=== PATIENT | male | born 1945 ===

== ENCOUNTER 2017-01-09 15:48 | Inpatient (IN) | payer OTHER ==
[~2017-01-09] VITALS: Ht 170.2 cm; Wt 85.3 kg
[2017-01-09 16:36] LABS: HEMATOCRIT 42.7 % (42-52); MEAN CELL VOLUME 84.6 fL (80-100); MEAN CORPUSCULAR HEMOGLOBIN 27.5 pg (25-34); MEAN CORPUSCULAR HGB CONC 32.6 g/dl (32-36); MEAN PLATELET VOLUME 10.6 fL (7.4-10.4); PLATELET COUNT 173 K/uL (130-400); RED BLOOD COUNT 5.05 M/uL (4.7-6.1); WHITE BLOOD COUNT 9.73 K/uL (4.8-10.8)
[2017-01-09 16:45] LABS: PARTIAL THROMBOPLASTIN RATIO 1.1; PROTHROMBIN TIME (PATIENT) 10.5 SECONDS (9.0-12.0)
--- NOTE | 2017-01-09 16:47 | DIAGNOSTIC IMAGING REPORT ---
SINGLE VIEW CHEST CLINICAL HISTORY: Syncope. FINDINGS: An AP, portable, upright chest radiograph is obtained. No prior studies are available for comparison at the time of dictation. The examination is degraded by portable technique, apical lordotic positioning, and patient rotation. The heart is mildly enlarged and there is atherosclerotic calcification of the thoracic aorta. The pulmonary vasculature is noncongested. The lungs and pleural spaces are clear. No pneumothorax is seen. The skeletal structures are osteopenic. The bony thorax is grossly intact. IMPRESSION: Mild cardiac enlargement with no acute cardiopulmonary abnormality. Electronically signed by: Paul Faust M.D. 01/09/2017 4:46 PM Dictated Date/Time: 01/09/2017 4:45 PM
[2017-01-09 16:55] LABS: BUN/CREATININE RATIO 10.9 (10-20); CALCIUM 9.1 mg/dl (8.5-10.1); CREATININE 2.3 mg/dl (0.60-1.40); POTASSIUM 4.5 mmol/L (3.5-5.1)
[2017-01-09] MEDS ORDERED: SODIUM CHLORIDE 0.9% 500ML 500 ML IV STA (16:59)
[2017-01-09 17:00] LABS: ALB/GLOB RATIO 0.9 (0.9-2); CKMB/CK RATIO 1.7 (0-3.0)
[2017-01-09] MEDS ORDERED: DIPHTHERIA/TETANUS/PERTUSSIS 0.5 ML SYR/VIAL IM. ONE (17:00)
--- NOTE | 2017-01-09 17:42 | DIAGNOSTIC IMAGING REPORT ---
CT OF THE HEAD WITHOUT CONTRAST CLINICAL HISTORY: Syncopal episode with fall. Head injury. Evaluate for bleed. COMPARISON STUDY: No previous studies for comparison. CT DOSE: 537.48 mGy.cm TECHNIQUE: Helical axial images of the head were obtained without IV contrast. Automated exposure control was utilized for the study. FINDINGS: No acute intracranial hemorrhage, midline shift or mass effect is present. Ventricular system is normal. Basilar cisterns are patent. There are no extra-axial collections. You-white differentiation is maintained. There are no findings to suggest acute dural sinus thrombosis or acute territorial infarct. There is mild bilateral basal ganglia calcification. Minimal right frontal scalp gas represents a laceration. There is no calvarial fracture. IMPRESSION: 1. No acute intracranial findings. 2. Right frontal scalp laceration. No calvarial fracture. Electronically signed by: Aristeo Barnard M.D. 01/09/2017 5:41 PM Dictated Date/Time: 01/09/2017 5:39 PM
[2017-01-09] MEDS ORDERED: [UNRECOGNIZED DRUG - OTHER] PO (18:17)
[2017-01-09] MEDS ORDERED: [UNRECOGNIZED DRUG - MIXTURE] PO (18:17)
[2017-01-09] MEDS ORDERED: [UNRECOGNIZED DRUG - OTHER] PO (18:17)
[2017-01-09] MEDS ORDERED: [UNRECOGNIZED DRUG - CODE] PO (18:17)
[2017-01-09] MEDS ORDERED: [UNRECOGNIZED DRUG - OTHER] PO (18:17)
[2017-01-09] MEDS ORDERED: LORA-741 PO (18:17)
[2017-01-09] MEDS ORDERED: [UNRECOGNIZED DRUG - OTHER] PO (18:17)
--- NOTE | 2017-01-09 18:35 | DIAGNOSTIC IMAGING REPORT ---
RIGHT LOWER EXTREMITY VENOUS DOPPLER CLINICAL HISTORY: Evaluate for deep venous thrombus. Syncopal episode. COMPARISON STUDY: No previous studies for comparison. TECHNIQUE: Sonography of the deep venous system of the right lower extremity was performed. Compression and augmentation were evaluated. FINDINGS: The right common femoral, superficial femoral and popliteal veins were compressible. Augmentation was normal. Flow was shown within the deep calf vessels. IMPRESSION: No evidence of deep venous thrombus within the right lower extremity. Electronically signed by: Aristeo Barnard M.D. 01/09/2017 6:33 PM Dictated Date/Time: 01/09/2017 6:32 PM
--- NOTE | 2017-01-09 18:43 | DIAGNOSTIC IMAGING REPORT ---
PELVIS 1 OR 2 VIEW ROUTINE CLINICAL HISTORY: Syncope. Fall. COMPARISON STUDY: No previous studies for comparison. FINDINGS: The sacroiliac joints and symphysis pubis are intact. No acute fracture is identified. Ossific/calcific density adjacent to the greater trochanter of the left femur is chronic. IMPRESSION: No acute fracture within the pelvis or hips. Electronically signed by: Aristeo Barnard M.D. 01/09/2017 6:42 PM Dictated Date/Time: 01/09/2017 6:41 PM
--- NOTE | 2017-01-09 20:37 | EMERGENCY ROOM VISIT NOTE ---
History Report prepared by Dang: Dany Chavis Under the Supervision of: Dr. Brayan Varela M.D. First contact with patient: 16:43 Chief Complaint: SYNCOPE Stated Complaint: SYNCOPE / [facility] Nursing Triage Summary: pt arrives via EMS with family from [employer] ([place] pt there for hx of syncopal episode , pt then had syncopal episode in parking lot , lac to right side of head from fall , denie sLOC pt denies cp or sob , denies TODD or NV denies vision changes BSG from [employer] ([place] History of Present Illness The patient is a 71 year old male with a history diabetes and hypertension who presents to the Emergency Room with complaints of a syncopal episode that occurred earlier today. The patient says that he has been having some dizziness over the past few days, and his pressure came down to 85/50 this morning. He states that he has not had blood pressure issues in a long time, and has been taking a blood pressure medication (Olmetec) for 20 years. The patient notes that every time he got up from sitting down over the past 2 days, he would get lightheaded and his vision would darken. He would wait a few seconds to make his first step, and he would feel better. However, on his way to [employer] earlier today, the patient says that he stepped out of the car in the [employer] parking lot, and did not wait a few moments this time before making his first step. He states that when he made his first step, and got dizzy, blacked out and fell. Per the patient's family, the patient stumbled backward, hitting the right side of his head on another car, and was out for around 10 seconds. The patient did not have any seizure-like activity. The patient says that he was feeling fine before 2 days ago, and his blood pressure had been fine. He does note that he ate something that gave him indigestion 2 days ago before the symptoms came on, and he has been having episodes of heaviness in his abdomen and lower chest ever since then. The patient additionally says that he had a headache and was shivering 2 nights ago. He did not take his temperature, but he thinks he had a fever. He took Tylenol that night. The patient says that he has been having some right calf pain for the past month. He denies any shortness of breath, palpitations, current headaches, melena, hematochezia, or diarrhea. He came from [place] 2 months ago, and has not had any major traveling since then. He does not think that he has had a recent tetanus shot. Source of History: patient, family Onset: Earlier today Position: other (global - syncope) Timing: other (episode) Associated Symptoms: No headache (currently), No SOB, No melena, No hematochezia, No diarrhea Note: Associated symptoms: Dizziness, lightheadedness. Notes indigestion for past 2 days (heaviness in abdomen and lower chest). Notes that 2 nights ago had a headache and was shivering. [place] feverish. Denies palpitations. Review of Systems See HPI for pertinent positives & negatives. A total of 10 systems reviewed and were otherwise negative. Past Medical & Surgical Medical Problems: (1) Diabetes (2) HTN (hypertension) Family History No pertinent family history Social History Smoking Status: Never Smoker Alcohol Use: none Marital Status: Housing Status: lives with family Current/Historical Medications Scheduled Lorazepam (Ativan), 0.5 MG PO QPM [Ecosprin], 1 TAB PO DAILY [Gp1], 1 TAB PO DAILY [Madl Forte], 1 TAB PO DAILY [[place]], 1 GM PO QAM [Sompraz], 20 MG PO DAILY [Ziten-M], 1 TAB PO QPM Allergies Coded Allergies: No Known Allergies (Unverified , 01/09/17) Physical Exam Vital Signs Date Time Temp Pulse Resp B/P (MAP) Pulse Ox O2 Delivery O2 Flow Rate FiO2 01/09/17 18:45 75 18 128/70 97 Room Air 01/09/17 17:22 82 18 100/62 99 Room Air 01/09/17 17:17 76 124/73 108 109/67 82 100/62 01/09/17 16:51 85 01/09/17 15:53 36.6 84 20 109/67 95 Room Air Physical Exam Constitutional: Vital signs reviewed. Eyes: Pupils are equal round reactive to light. Conjunctiva are noninjected. ENT: Pharynx is clear without erythema or exudate. Mucous membranes are moist. Neck supple without meningeal signs. Respiratory: Clear to auscultation bilaterally. Breath sounds are equal bilaterally. Cardiovascular: Regular rate and rhythm. No rubs or gallops. GI: Soft, nondistended and nontender. Bowel sounds are present. Musculoskeletal: No peripheral edema. No lower extremity tenderness. No hip tenderness. Integumentary: Skin avulsion to right scalp, no active bleeding, no bony depression. Neurological: The patient is awake and alert. Cranial nerves II-XII are intact. Motor is 5 out of 5 all extremities. Sensation is intact to light touch all extremities. Normal speech. No pronator drift. No limb ataxia. Psychiatric: Normal affect. Medical Decision & Procedures ER Provider Diagnostic Interpretation: Radiology results as stated below per my review and the radiologist's interpretation: SINGLE VIEW CHEST CLINICAL HISTORY: Syncope. FINDINGS: An AP, portable, upright chest radiograph is obtained. No prior studies are available for comparison at the time of dictation. The examination is degraded by portable technique, apical lordotic positioning, and patient rotation. The heart is mildly enlarged and there is atherosclerotic calcification of the thoracic aorta. The pulmonary vasculature is noncongested. The lungs and pleural spaces are clear. No pneumothorax is seen. The skeletal structures are osteopenic. The bony thorax is grossly intact. IMPRESSION: Mild cardiac enlargement with no acute cardiopulmonary abnormality. Electronically signed by: Paul Faust M.D. 01/09/2017 4:46 PM Dictated Date/Time: 01/09/2017 4:45 PM RIGHT LOWER EXTREMITY VENOUS DOPPLER CLINICAL HISTORY: Evaluate for deep venous thrombus. Syncopal episode. COMPARISON STUDY: No previous studies for comparison. TECHNIQUE: Sonography of the deep venous system of the right lower extremity was performed. Compression and augmentation were evaluated. FINDINGS: The right common femoral, superficial femoral and popliteal veins were compressible. Augmentation was normal. Flow was shown within the deep calf vessels. IMPRESSION: No evidence of deep venous thrombus within the right lower extremity. Electronically signed by: Aristeo Barnard M.D. 01/09/2017 6:33 PM Dictated Date/Time: 01/09/2017 6:[address] OF THE HEAD WITHOUT CONTRAST CLINICAL HISTORY: Syncopal episode with fall. Head injury. Evaluate for bleed. COMPARISON STUDY: No previous studies for comparison. CT DOSE: 537.48 mGy.cm TECHNIQUE: Helical axial images of the head were obtained without IV contrast. Automated exposure control was utilized for the study. FINDINGS: No acute intracranial hemorrhage, midline shift or mass effect is present. Ventricular system is normal. Basilar cisterns are patent. There are no extra-axial collections. You-white differentiation is maintained. There are no findings to suggest acute dural sinus thrombosis or acute territorial infarct. There is mild bilateral basal ganglia calcification. Minimal right frontal scalp gas represents a laceration. There is no calvarial fracture. IMPRESSION: 1. No acute intracranial findings. 2. Right frontal scalp laceration. No calvarial fracture. Electronically signed by: Aristeo Barnard M.D. 01/09/2017 5:41 PM Dictated Date/Time: 01/09/2017 5:39 PM PELVIS 1 OR 2 VIEW ROUTINE CLINICAL HISTORY: Syncope. Fall. COMPARISON STUDY: No previous studies for comparison. FINDINGS: The sacroiliac joints and symphysis pubis are intact. No acute fracture is identified. Ossific/calcific density adjacent to the greater trochanter of the left femur is chronic. IMPRESSION: No acute fracture within the pelvis or hips. Electronically signed by: Aristeo Barnard M.D. 01/09/2017 6:42 PM Dictated Date/Time: 01/09/2017 6:41 PM Laboratory Results 01/09/17 16:15 01/09/17 16:15 Test 01/09/17 16:15 01/09/17 16:19 Red Blood Count 5.05 M/uL (4.7-6.1) Mean Corpuscular Volume 84.6 fL (80-100) Mean Corpuscular Hemoglobin 27.5 pg (25-34) Mean Corpuscular Hemoglobin Concent 32.6 g/dl (32-36) RDW Standard Deviation 41.0 fL (36.4-46.3) RDW Coefficient of Variation 13.4 % (11.5-14.5) Mean Platelet Volume 10.6 fL (7.4-10.4) Prothrombin Time 10.5 SECONDS (9.0-12.0) Prothromb Time International Ratio 1.0 (0.9-1.1) Activated Partial Thromboplast Time 28.9 SECONDS (21.0-31.0) Partial Thromboplastin Ratio 1.1 Anion Gap 6.0 mmol/L (3-11) Est Creatinine Clear Calc Drug Dose 31.2 ml/min Estimated GFR () 31.7 Estimated GFR (Non- 27.3 BUN/Creatinine Ratio 10.9 (10-20) Calcium Level 9.1 mg/dl (8.5-10.1) Total Bilirubin 0.3 mg/dl (0.2-1) Aspartate Amino Transf (AST/SGOT) 10 U/L (15-37) Alanine Aminotransferase (ALT/SGPT) 20 U/L (12-78) Alkaline Phosphatase 82 U/L (45-117) Total Creatine Kinase 102 U/L (39-308) Creatine Kinase MB 1.7 ng/ml (0.5-3.6) Creatine Kinase MB Ratio 1.7 (0-3.0) Total Protein 7.6 gm/dl (6.4-8.2) Albumin 3.7 gm/dl (3.4-5.0) Globulin 3.9 gm/dl (2.5-4.0) Albumin/Globulin Ratio 0.9 (0.9-2) Bedside Troponin I < 0.030 ng/ml (0-0.045) Laboratory results as reviewed by me. Medications Administered Medications (Trade) Dose Ordered Sig/[place] Route Start Time Stop Time Status Last Admin Dose Admin Sodium Chloride 500 ml @ 999 mls/hr Q31M STAT IV 01/09/17 16:59 01/09/17 17:29 DC 01/09/17 16:59 999 MLS/HR Diphtheria/ Pertussis/Tetanus Vacc (Adacel Inj) 0.5 ml ONCE ONCE IM. 01/09/17 17:00 01/09/17 17:01 DC 01/09/17 18:44 0.5 ML ECG Indication: syncope Rate (beats per minute): 84 Findings: no acute ischemic change, other (left anterior fascicular block) ED Course 1641: The patient was evaluated in room C2A. A complete history and physical exam was performed. 1658: Ordered NSS 500 ml @ 999 mls/hr IV. 1699: Ordered Adacel Inj 0.5 ml IM. 1926: I spoke to the medical unit secretary, who said she already spoke with Dr. Rausch - [facility] gym attendant - about the patient and that Dr. Rausch is already working on getting the patient evaluated for further treatment. Medical Decision This is a 71-year-old male who presents with a syncopal episode and head injury and right leg pain. Differential diagnosis includes vasovagal syncope, orthostatic hypotension, dehydration, renal failure, metabolic derangement, anemia, cardiac, DVT. I did perform a limited focused review of portions of the patient's old chart on the electronic medical record. The patient has had no prior visits to this hospital. Blood Pressure Screening: Patient was found to have normal blood pressure on screening and does not require follow-up. Medication Reconciliation: I attest that I have personally reviewed the patient' s current medication list. I did evaluate the patient as noted above. IV access was established. The patient was placed on a continuous classroom monitor. I did order and personally review the patient's 12-lead EKG and chest/pelvic x-rays as described above. I did order and review the patient's blood work as noted in the electronic medical record. The patient has renal failure on blood work. He is also orthostatic. I did give him IV fluids. It seems likely that the patient developed renal failure which caused his antihypertensives to accumulate in his body causing him to be weak and lightheaded over the past 2 days and to pass out today. I did order a CT of the head. I did review the images myself as well as the radiology report as described above. I did order a Doppler of the right lower extremity which showed no evidence of DVT. I did discuss the test results with the patient and his son. I did discuss the case with the hospitalist and case reviewer for further evaluation in the hospital. He will require repeat cardiac enzymes as he was complaining of some chest pressure as well. Impression Primary Impression: Syncope Additional Impressions: Acute renal failure Left sided chest pain Right leg pain Scalp laceration Head injury Scribe Attestation The scribe's documentation has been prepared under my direct and personally reviewed by me in its entirety. I confirm that the note above accurately reflects all work, treatment, procedures, and medical decision making performed by me. Departure Information Dispostion Being Evaluated By Hospitalist Patient Instructions My [facility] Problem Qualifiers Primary Impression: Syncope Syncope type: unspecified Qualified Codes: R55 - Syncope and collapse Additional Impressions: Acute renal failure Acute renal failure type: unspecified Qualified Codes: N17.9 - Acute kidney failure, unspecified Scalp laceration Encounter type: initial encounter Qualified Codes: S01.01XA - Laceration without foreign body of scalp, initial encounter Head injury Encounter type: initial encounter Qualified Codes: S09.90XA - Unspecified injury of head, initial encounter
[2017-01-09] MEDS ORDERED: ONDANSETRON INJ 2 MG/ML 2 ML VIAL IV PRN (20:45)
[2017-01-09] MEDS ORDERED: POLYETHYLENE (MIRALAX) 17 GM PACK PO PRN (20:45)
[2017-01-09] MEDS ORDERED: ACETAMINOPHEN 325 MG TAB PO PRN (20:45)
--- NOTE | 2017-01-09 20:52 | History and Physical ---
History & Physical Date & Time of Service: Jan 09, 2017 at 20:52 Chief Complaint: Syncope / [facility] Primary Care Physician: No Doctor, Assigned History of Present Illness Source: patient 71-year-old male with past medical history of diabetes and hypertension presented to the ER after he had a syncopal episode earlier today. The patient stated that he has been feeling dizzy on and off and had noticed that he felt dizzy/lightheaded if he suddenly stood up. He would usually wait for a few moments before moving further. He noticed that his dizziness worsened in the last few days and his blood pressure this morning was 80/50. He was on his way to [employer] to be checked out. While in the parking lot, as he stood up from his car he felt lightheaded and had a syncopal episode. During his fall, he hit his head to an adjacent car and sustained a laceration on the scalp. No seizure-like activity was witnessed. He denies any chest pain, difficulty breathing, palpitations prior to the syncopal episode. Denies any motor weakness, numbness or tingling, nausea or vomiting. He had recently traveled from [facility] and was complaining of right calf pain. Denies any fevers or chills, cough, dysuria . He states that his appetite has been low but he has been forcing himself to eat. He also thinks he had decreased fluid intake in the last few days. Past Medical/Surgical History Hypertension, GERD, diabetes mellitus Family History No pertinent family history Social History Smoking Status: Never Smoker Marital Status: Allergies Coded Allergies: No Known Allergies (Unverified , 01/09/17) Home Medications Scheduled Lorazepam (Ativan), 0.5 MG PO QPM [Ecosprin], 1 TAB PO DAILY [Gp1], 1 TAB PO DAILY [Madl Forte], 1 TAB PO DAILY [Olmetrack], 1 GM PO QAM [Sompraz], 20 MG PO DAILY [Ziten-M], 1 TAB PO QPM Review of Systems Constitutional: No fever, No chills Eyes: No worsening of vision ENT: No hearing loss Respiratory: No cough, No sputum, No shortness of breath Cardiovascular: No chest pain, No palpitations Abdomen: No pain, No nausea, No vomiting Musculoskeletal: No joint pain Genitourinary - Male: No dysuria, No urinary frequency Neurologic: + problem reported (dizziness with syncopal episode), No memory loss Psychiatric: No depression symptoms Endocrine: No fatigue Hematologic / Lymphatic: No abnormal bleeding/bruising Physical Exam Vital Signs Date Time Temp Pulse Resp B/P (MAP) Pulse Ox O2 Delivery O2 Flow Rate FiO2 01/09/17 18:45 75 18 128/70 97 Room Air 01/09/17 17:22 82 18 100/62 99 Room Air 01/09/17 17:17 76 124/73 108 109/67 82 100/62 01/09/17 16:51 85 01/09/17 15:53 36.6 84 20 109/67 95 Room Air General Appearance: WD/WN, no apparent distress Head: normocephalic, + pertinent finding (laceration on right forehead) Eyes: normal inspection ENT: hearing grossly normal Neck: supple Respiratory/Chest: lungs clear, normal breath sounds, no respiratory distress, no accessory muscle use Cardiovascular: regular rate, rhythm Abdomen/GI: normal bowel sounds, non tender, soft Back: normal inspection, no CVA tenderness Neurologic/Psych: alert, normal mood/affect, oriented x 3 Diagnostics Laboratory Results Results Past 24 Hours Test 01/09/17 16:15 01/09/17 16:19 Range/Units White Blood Count 9.73 4.8-10.8 K/uL Red Blood Count 5.05 4.7-6.1 M/uL Hemoglobin 13.9 14.0-18.0 g/dL Hematocrit 42.7 42-52 % Mean Corpuscular Volume 84.6 80-100 fL Mean Corpuscular Hemoglobin 27.5 25-34 pg Mean Corpuscular Hemoglobin Concent 32.6 32-36 g/dl RDW Standard Deviation 41.0 36.4-46.3 fL RDW Coefficient of Variation 13.4 11.5-14.5 % Platelet Count 173 130-400 K/uL Mean Platelet Volume 10.6 7.4-10.4 fL Prothrombin Time 10.5 9.0-12.0 SECONDS Prothromb Time International Ratio 1.0 0.9-1.1 Activated Partial Thromboplast Time 28.9 21.0-31.0 SECONDS Partial Thromboplastin Ratio 1.1 Sodium Level 140 136-145 mmol/L Potassium Level 4.5 3.5-5.1 mmol/L Chloride Level 108 98-107 mmol/L Carbon Dioxide Level 26 21-32 mmol/L Anion Gap 6.0 3-11 mmol/L Blood Urea Nitrogen 25 7-18 mg/dl Creatinine 2.30 0.60-1.40 mg/dl Est Creatinine Clear Calc Drug Dose 31.2 ml/min Estimated GFR () 31.7 Estimated GFR (Non- 27.3 BUN/Creatinine Ratio 10.9 10-20 Random Glucose 119 70-99 mg/dl Calcium Level 9.1 8.5-10.1 mg/dl Total Bilirubin 0.3 0.2-1 mg/dl Aspartate Amino Transf (AST/SGOT) 10 15-37 U/L Alanine Aminotransferase (ALT/SGPT) 20 12-78 U/L Alkaline Phosphatase 82 45-117 U/L Total Creatine Kinase 102 39-308 U/L Creatine Kinase MB 1.7 0.5-3.6 ng/ml Creatine Kinase MB Ratio 1.7 0-3.0 Total Protein 7.6 6.4-8.2 gm/dl Albumin 3.7 3.4-5.0 gm/dl Globulin 3.9 2.5-4.0 gm/dl Albumin/Globulin Ratio 0.9 0.9-2 Bedside Troponin I < 0.030 0-0.045 ng/ml Diagnostic Radiology [~ rep ct add3]] SINGLE VIEW CHEST CLINICAL HISTORY: Syncope. FINDINGS: An AP, portable, upright chest radiograph is obtained. No prior studies are available for comparison at the time of dictation. The examination is degraded by portable technique, apical lordotic positioning, and patient rotation. The heart is mildly enlarged and there is atherosclerotic calcification of the thoracic aorta. The pulmonary vasculature is noncongested. The lungs and pleural spaces are clear. No pneumothorax is seen. The skeletal structures are osteopenic. The bony thorax is grossly intact. IMPRESSION: Mild cardiac enlargement with no acute cardiopulmonary abnormality. Electronically signed by: Paul Faust M.D. 01/09/2017 4:46 PM Dictated Date/Time: 01/09/2017 4:45 PM RIGHT LOWER EXTREMITY VENOUS DOPPLER CLINICAL HISTORY: Evaluate for deep venous thrombus. Syncopal episode. COMPARISON STUDY: No previous studies for comparison. TECHNIQUE: Sonography of the deep venous system of the right lower extremity was performed. Compression and augmentation were evaluated. FINDINGS: The right common femoral, superficial femoral and popliteal veins were compressible. Augmentation was normal. Flow was shown within the deep calf vessels. IMPRESSION: No evidence of deep venous thrombus within the right lower extremity. Electronically signed by: Aristeo Barnard M.D. 01/09/2017 6:33 PM Dictated Date/Time: 01/09/2017 6:[address] OF THE HEAD WITHOUT CONTRAST CLINICAL HISTORY: Syncopal episode with fall. Head injury. Evaluate for bleed. COMPARISON STUDY: No previous studies for comparison. CT DOSE: 537.48 mGy.cm TECHNIQUE: Helical axial images of the head were obtained without IV contrast. Automated exposure control was utilized for the study. FINDINGS: No acute intracranial hemorrhage, midline shift or mass effect is present. Ventricular system is normal. Basilar cisterns are patent. There are no extra-axial collections. You-white differentiation is maintained. There are no findings to suggest acute dural sinus thrombosis or acute territorial infarct. There is mild bilateral basal ganglia calcification. Minimal right frontal scalp gas represents a laceration. There is no calvarial fracture. IMPRESSION: 1. No acute intracranial findings. 2. Right frontal scalp laceration. No calvarial fracture. Electronically signed by: Aristeo Barnard M.D. PELVIS 1 OR 2 VIEW ROUTINE CLINICAL HISTORY: Syncope. Fall. COMPARISON STUDY: No previous studies for comparison. FINDINGS: The sacroiliac joints and symphysis pubis are intact. No acute fracture is identified. Ossific/calcific density adjacent to the greater trochanter of the left femur is chronic. IMPRESSION: No acute fracture within the pelvis or hips. Electronically signed by: Aristeo Barnard M.D. 01/09/2017 6:42 PM EKG Normal sinus rhythm Left anterior fascicular block Abnormal ECG No previous ECGs available Confirmed by GUSTAVO VELÁZQUEZ ([id number]) on 01/09/2017 6:34:54 PM Impression Assessment and Plan 71-year-old male with past medical history of diabetes and hypertension presented to the ER after he had a syncopal episode earlier today. He has been experiencing dizziness/lightheadedness especially on getting up which had worsened last few days. While in the parking lot today he had S syncopal episode after he stood up from the car and fell hitting the right side of his head and sustained scalp laceration. Fall/ syncopal episode secondary to dizziness: It is likely the dizziness/lightheadedness is secondary to orthostatic hypotension - Head CT negative, pelvic x-ray negative for fractures - EKG: Normal sinus rhythm, Left anterior fascicular block - Initial trop negative, troponin trended every 8 hours - Orthostatic vitals Qshift - Hold current blood pressure medication - Continue IV fluids - Fall precautions PRINCESS Cr on admission at 2.3, unknown baseline - Continue IVF - Monitor Cr Right calf pain: - Doppler ultrasound negative for DVT DMT2 - Home oral meds currently held - ISS HTN: - held home meds - Monitor orthostatic vitals every shift DVT prophylaxis: SCDs GERD: - continue protonix Full code Disposition: admitted to tele Resident Physician Supervision Note: I was present with Dr. Avery during the history and exam. I discussed the case with the resident and agree with the findings and plan as documented in the note. Any exceptions or clarifications are listed here: Documented By: Maxwell Rausch 71 y/o M HTN, DM - visiting from [place] - suffered a syncopal episode in a parking lot - describes orthostasis symptoms prior. Pt is not aware of histroy of CKD - Creat is elevated which may be acute or chronic. He was concerned that he had not been drinking enough water since arrival although this too is unclear. OE Well appearing elderly male AAO x 2 S1,2 R CTAB NT, ND, BS+ No CCE P: IVF orthostatics with vitals Trend renal function We may have to source his baseline if there is no improvement to guide in setting a target value Level of Care Telemetry Resuscitation Status FULL RESUSCITATION VTE Prophylaxis VTE Risk Assessment Done? Y/N: Yes Risk Level: Moderate Given or contraindicated: SCD's Resident Tracking Resident Involvement: Resident Care Provided Care Provided: Adult Hospital Medicine
[2017-01-09] MEDS ORDERED: DEXTROSE 50% 50 ML SYR IV PRN (21:30)
[2017-01-09] MEDS ORDERED: GLUCAGON FOR INJ 1 MG VIAL SQ PRN (21:30)
[2017-01-09] MEDS ORDERED: GLUCOSE 40% GEL 15 GM TUBE PO PRN (21:30)
[2017-01-09] MEDS ORDERED: GLUCOSE 10 TABS/TUBE PO PRN (21:30)
[2017-01-09 21:45] VITALS: BP 118/70; PULSE 78; TEMP 36.4; O2SAT 96; Ht 170.2 cm; Wt 85.3 kg
[2017-01-09] MEDS: SODIUM CHLORIDE 0.9% 1000ML 1,000 ML IV SCH (22:59)
[2017-01-09 23:04] VITALS: BP 95/53
[2017-01-10] VITALS (8 sets, daily range): BP systolic 92–112; BP diastolic 52–68; PULSE 64–82; TEMP 36.5–36.8; O2SAT 96–99
[2017-01-10] MEDS: INSULIN ASPART 100 UNITS/ML 3 ML PEN SC SCH ×2 (07:35→11:41)
[2017-01-10 08:14] LABS: HEMATOCRIT 42.1 % (42-52); MEAN CELL VOLUME 85.2 fL (80-100); MEAN CORPUSCULAR HEMOGLOBIN 27.5 pg (25-34); MEAN CORPUSCULAR HGB CONC 32.3 g/dl (32-36); MEAN PLATELET VOLUME 10.8 fL (7.4-10.4); PLATELET COUNT 164 K/uL (130-400); RED BLOOD COUNT 4.94 M/uL (4.7-6.1); WHITE BLOOD COUNT 8.02 K/uL (4.8-10.8)
[2017-01-10] MEDS: SODIUM CHLORIDE 0.9% 1000ML 1,000 ML IV SCH (08:41)
[2017-01-10 08:44] LABS: ALB/GLOB RATIO 0.9 (0.9-2); BUN/CREATININE RATIO 13.5 (10-20); CREATININE 1.3 mg/dl (0.60-1.40); POTASSIUM 4.7 mmol/L (3.5-5.1)
[2017-01-10] MEDS ORDERED: PANTOprazole SOD 40 MG TAB PO SCH (09:00)
[2017-01-10] MEDS ORDERED: ASPIRIN 81 MG ECTAB PO SCH (09:00)
--- NOTE | 2017-01-10 14:18 | Discharge Instructions ---
Discharge Instructions Date of Service Jan 10, 2017. Admission Reason for Admission: Acute Renal Failure Syncopal Episodes Syncope Discharge Discharge Diagnosis / Problem: Orthostatic hypotension. Dehydration. Discharge Goals Goal(s): Improve disease control Activity Recommendations Activity Limitations: per Instructions/Follow-up section Exercise/Sports Limitations: gradually increase as tolerated Shower/Bathe: no limitations Driving or Machine Use: resume 1 day after discharge . Instructions / Follow-Up Instructions / Follow-Up Follow up with your Family doctor within one week. You will need a blood test ensuring your kidney function has improved. Drink lots of water and stay hydrated. Do not keep taking your blood pressure medication from [facility]. You can make an appt with Dr El or Dr Avery by calling [phone], [facility] [address] [address] ([facility] [employer] building in front of the hospital). Current Hospital Diet Patient's current hospital diet: Diabetes Type 2 Diet Discharge Diet Recommended Diet: Diabetes Type 2 Diet Pending Studies Studies pending at discharge: no Medical Emergencies . Who to Call and When: Medical Emergencies: If at any time you feel your situation is an emergency, please call 911 immediately. . Non-Emergent Contact Non-Emergency issues call your: Primary Care Provider . . "Provider Documentation" section prepared by Lolis El. . VTE Core Measure Inpt VTE Proph given/why not?: SCD's
--- NOTE | 2017-01-10 14:25 | Discharge Summary ---
Discharge Summary Date of Service Jan 10, 2017. (Lolis El MD) Discharge Summary Admission Date: Jan 09, 2017 at 20:46 Discharge Date: Jan 10, 2017 Discharge Disposition: Home Principal Diagnosis: Orthostatic hypotension, Dehydration Procedures: SINGLE VIEW CHEST IMPRESSION: Mild cardiac enlargement with no acute cardiopulmonary abnormality. RIGHT LOWER EXTREMITY VENOUS DOPPLER IMPRESSION: No evidence of deep venous thrombus within the right lower extremity. CT OF THE HEAD WITHOUT CONTRAST IMPRESSION: 1. No acute intracranial findings. 2. Right frontal scalp laceration. No calvarial fracture. PELVIS 1 OR 2 VIEW ROUTINE CLINICAL HISTORY: Syncope. Fall. IMPRESSION: No acute fracture within the pelvis or hips. (Lolis El MD) Problems/Secondary Diagnoses: acute kidney injury - resolved GERD T2DM HTN (Kevin Solorzano MD) Medication Reconciliation Continued Medications: Lorazepam (Ativan) 0.5 Mg Tab 0.5 MG PO QPM [Ecosprin] () 1 TAB PO DAILY ASPIRIN FROM [facility] [Sompraz] () 20 MG PO DAILY SUPPLEMENT FROM [facility] Discontinued Medications: [Gp1] () 1 TAB PO DAILY SUGAR PILL FROM [facility]. [Madl Forte] () 1 TAB PO DAILY SUPPLEMENT FROM [facility] [Olmetrack] () 1 GM PO QAM BLOOD PRESSURE MED FROM [facility] [Ziten-M] () 1 TAB PO QPM SUGAR PILL FROM [facility]. Discharge Exam Review of Systems: Constitutional: No fever, No chills, No sweats, No weight loss, No weakness Eyes: No worsening of vision Respiratory: No cough, No sputum, No wheezing Cardiovascular: No chest pain Abdomen: No pain, No nausea, No vomiting Musculoskeletal: No joint pain Genitourinary - Male: No hematuria, No dysuria Neurologic: No memory loss, No paralysis Psychiatric: No depression symptoms Endocrine: No fatigue Hematologic / Lymphatic: No abnormal bleeding/bruising Integumentary: No rash Physical Exam: General Appearance: WD/WN, no apparent distress Eyes: normal inspection, PERRL ENT: hearing grossly normal Neck: supple, no JVD Respiratory/Chest: lungs clear, normal breath sounds, no respiratory distress Cardiovascular: regular rate, rhythm Abdomen / GI: non tender, soft Extremities: no calf tenderness, no pedal edema Neurologic/Psychiatric: alert, normal mood/affect, normal reflexes, oriented x 3 Skin: no rash (Lolis El MD) Hospital Course HPI: 71-year-old male with past medical history of diabetes and hypertension presented to the ER after he had a syncopal episode earlier today. The patient stated that he has been feeling dizzy on and off and had noticed that he felt dizzy/lightheaded if he suddenly stood up. He would usually wait for a few moments before moving further. He noticed that his dizziness worsened in the last few days and his blood pressure this morning was 80/50. He was on his way to [email or web address] to be checked out. While in the parking lot, as he stood up from his car he felt lightheaded and had a syncopal episode. During his fall, he hit his head to an adjacent car and sustained a laceration on the scalp. No seizure-like activity was witnessed. He denies any chest pain, difficulty breathing, palpitations prior to the syncopal episode. Denies any motor weakness, numbness or tingling, nausea or vomiting. He had recently traveled from [facility] and was complaining of right calf pain. Denies any fevers or chills, cough, dysuria . He states that his appetite has been low but he has been forcing himself to eat. He also thinks he had decreased fluid intake in the last few days. HOSPITAL COURSE: 71-year-old male with past medical history of diabetes and hypertension presented to the ER after he had a syncopal episode earlier today, likely from BP meds. Fall/ syncopal episode secondary to dizziness: It is likely the dizziness/lightheadedness is secondary to orthostatic hypotension, as he is on an ARB-HCTZ combo from [place]. - Head CT negative, pelvic x-ray negative for fractures - EKG: Normal sinus rhythm, Left anterior fascicular block - Initial trop negative, troponin trended every 8 hours and was negative x 3 - Orthostatic vitals completed, resolved upon DC - Stopped current blood pressure medication PRINCESS Cr on admission at 2.3, resolved to 1.6 after IV fluids overnight Right calf pain: - Doppler ultrasound negative for DVT Type 2 DM - Home oral meds currently held, restarted at DC HTN: - held home meds - Monitor orthostatic vitals every shift DVT prophylaxis: SCDs GERD: - continue protonix Full code Disposition: Discharged in good condition on 01/10/17 Total Time Spent: Greater than 30 minutes This includes examination of the patient, discharge planning, medication reconciliation, and communication with other providers. (Lolis El MD) Resident Physician Supervision Note: I was present with PGY3 Dr. Lolis El during the discharge history and exam. I discussed the case with the resident and agree with the findings and plan as documented in the discharge summary. Any exceptions or clarifications are listed here: none. Pleasant 71yo male, [place] of [facility] but visiting his son here in [place], who presented with severe orthostatic hypotension/dizziness/acute kidney injury. This was felt 2nd to his ARB-HCTZ combination blood pressure medication. The ARB-HCTZ medication was held, he was hydrated, and his acute kidney injury resolved with discharge creatinine of 1.3. His orthostasis resolved prior to discharge. He will hold his ARB-HCTZ at discharge. Discharge exam: gen - nad neck - no JVD mouth - MMM heart - RRR, s1, s2, no murmur lungs - CTA b/l abd - soft, NT, ND, BS+ ext - no edema He will follow-up with [facility] in 1 week after discharge. Documented By: Kevin Solorzano MD (Kevin Solorzano MD) Discharge Instructions Please refer to the electronic Patient Visit Report (Discharge Instructions) for additional information. (Lolis El MD) Follow-Up With PCP within a week. Pt will be here until April. (Lolis El MD) Additional Copies To Yamileth Slaughter M.D. Resident Tracking Resident Involvement: Resident Care Provided Care Provided: Adult [facility] (Lolis El MD)
== END 2017-01-10 16:11 | disposition home or self-care (01) | DRG 312 ==
LOC: EDBD 15:48 → C.EDC 15:49 → C.2E 20:46 → ENRESERV 20:51
PROVIDERS: ADMIT Family Medicine; ATTEND Internal Medicine
DX: I95.1 Orthostatic hypotension (principal); N17.9 Acute kidney failure, unspecified; E11.9 Type 2 diabetes mellitus without complications; I10 Essential (primary) hypertension; S01.01XA Laceration without foreign body of scalp, initial encounter; K21.9 Gastro-esophageal reflux disease without esophagitis; M79.661 Pain in right lower leg; E86.0 Dehydration; Z79.82 Long term (current) use of aspirin; Z79.899 Other long term (current) drug therapy; W19.XXXA Unspecified fall, initial encounter